=== PATIENT | female | born 1990 | race Caucasian/White ===

== ENCOUNTER 2017-09-29 17:00 | Emergency (ER) | payer SELFPAY ==
[2017-09-29 17:18] VITALS: BP 119/82
== END 2017-09-29 18:08 | disposition home or self-care (01) ==
LOC: ED 17:00
DX: L03.012 Cellulitis of left finger (principal); Z88.0 Allergy status to penicillin

== ENCOUNTER 2017-10-03 10:34 | Emergency (ER) | payer SELFPAY ==
[~2017-10-03] VITALS: Ht 172.7 cm; Wt 107.5 kg
[2017-10-03 10:44] VITALS: Ht 172.7 cm; Wt 107.5 kg
[2017-10-03 15:27] VITALS: BP 119/79
== END 2017-10-03 15:27 | disposition home or self-care (01) ==
LOC: ED 10:34
DX: L03.012 Cellulitis of left finger (principal); Z88.0 Allergy status to penicillin
CPT/HCPCS: 90715; J2001; Q0162

== ENCOUNTER 2017-10-04 22:06 | Emergency (ER) | payer SELFPAY ==
[~2017-10-04] VITALS: Ht 160 cm; Wt 106.6 kg
[2017-10-04 23:15] VITALS: Ht 160 cm; Wt 106.6 kg
[2017-10-05 01:34] VITALS: BP 115/70
== END 2017-10-05 01:34 | disposition home or self-care (01) ==
LOC: ED 22:06
DX: Z48.01 Encounter for change or removal of surgical wound dressing (principal); Z88.0 Allergy status to penicillin

== ENCOUNTER 2017-10-06 10:52 | Emergency (ER) | payer MEDICAID ==
[~2017-10-06] VITALS: Ht 160 cm; Wt 106.6 kg
[2017-10-06 11:08] VITALS: Ht 160 cm; Wt 106.6 kg
[2017-10-06 14:39] VITALS: BP 111/68
== END 2017-10-06 14:39 | disposition home or self-care (01) ==
LOC: ED 10:52
DX: Z48.01 Encounter for change or removal of surgical wound dressing (principal); Z88.0 Allergy status to penicillin